=== PATIENT | male | born 1940 | race Caucasian/White ===

== ENCOUNTER 2022-01-13 14:13 | Inpatient (IN) | payer MEDICARE, SELFPAY ==
[2022-01-13] MEDS ORDERED: Naloxone HCl 0.4 mg/ml Vial ONE (14:34)
[2022-01-13] MEDS ORDERED: Morphine 4 MG/ML VIAL ONE ×2 (14:34→15:57)
[2022-01-13 14:41] LABS: #Basophils 0.1 thou/uL (0.0-0.2); #Eosinphils 0.1 thou/uL (0.0-0.7); #Lymphocytes 1.2 thou/uL (1.20-3.40); #Neutrophils 9.4 thou/uL (1.40-6.50); %Basophils 0.5 % (0.0-1.0); %Eosinophils 0.8 % (0.0-10.0); %Monocytes 8.5 % (0.0-10.0); %Neutrophils 80.2 % (42.0-75.0); Hemoglobin 12.4 g/dL (14.0-18.0); Mean Corpuscular HGB CONC 32.1 g/dL (32.0-36.0); Mean Corpuscular Hemoglobin 32.6 pg (27.0-31.0); Mean Platelet Volume 8.1 fL (7.4-10.4); Platelet Count 253 thou/uL (130-400); RBC Distribution Width 11.3 % (11.5-14.5); White Blood Cell (WBC) Count 11.7 thou/uL (4.8-10.8)
[2022-01-13 14:54] LABS: INR-International Normal Ratio 1.1; PTT 27.3 sec (22.9-36.1); Prothrombin Time 13.9 sec (12.0-14.7)
[2022-01-13 15:02] LABS: ALT (SGPT) 14 U/L (8-55); AST (SGOT) 25 U/L (5-34); Alkaline Phosphatase 60 U/L (40-110); Anion Gap 17 mmol/L (10-20); BUN (Urea Nitrogen) 6 mg/dL (8.4-25.7); Bilirubin, Total 0.5 mg/dL (0.2-1.2); CK (CPK) 111 U/L (30-200); Calc. Creatinine Clearance 0 mL/min (70-130); Calcium 9.4 mg/dL (7.8-10.44); Carbon Dioxide 22 mmol/L (23-31); Chloride 100 mmol/L (98-107); Globulin 2.4 g/dL (2.4-3.5); Glucose 133 mg/dL (83-110); Potassium 3.7 mmol/L (3.5-5.1); Protein, Total 6.4 g/dL (5.8-8.1); Sodium 135 mmol/L (136-145)
[2022-01-13] MEDS ORDERED: cefTRIAXone\\ROCEPHIN 2 GM VIAL ONE (15:57)
[2022-01-13 18:43] LABS: Lactic Acid 1.4 mmol/L (0.5-2.2)
[2022-01-13] MEDS ORDERED: Ondansetron PF 4 MG/2 ML Vial IVP PRN ×2 (18:45→19:42)
[2022-01-13] MEDS ORDERED: Ondansetron ODT 4 MG TAB SL PRN (18:45)
[2022-01-13] MEDS ORDERED: Acetaminophen 325 MG TAB PO PRN (18:45)
[2022-01-13] MEDS ORDERED: Dextrose 50% Abboject 50 ML SYRINGE SLOW IVP PRN (19:42)
[2022-01-13] MEDS ORDERED: Morphine 2 MG/ML VIAL SLOW IVP PRN (19:42)
[2022-01-13] MEDS ORDERED: Ondansetron ODT 4 MG TAB PO PRN (19:42)
[2022-01-13] MEDS ORDERED: hydrALAZINE 20 MG/ML VIAL SLOW IVP PRN (19:42)
[2022-01-13] MEDS ORDERED: Dextrose 5% in Water 1,000 ML IV PRN (19:42)
[2022-01-13] MEDS ORDERED: Sodium Chloride 0.9% 1,000 ML IV SCH (19:45)
[2022-01-13] MEDS ORDERED: traMADol HCl 50 MG TAB PO PRN (19:47)
[2022-01-13] MEDS ORDERED: Ibuprofen 800 MG TAB PO PRN (19:47)
[2022-01-13 20:08] LABS: Magnesium 1.7 mg/dL (1.6-2.6); Phosphorus 2.3 mg/dL (2.3-4.7)
[2022-01-13] MEDS: Cyclobenzaprine 10 MG TAB PO PRN (20:20)
[2022-01-13] MEDS: Senokot S 8.6-50 MG TAB PO SCH (20:20)
[2022-01-13] MEDS: Oxazepam 10 MG CAP PO SCH (20:20)
[2022-01-13] MEDS: Famotidine/PF 20 mg/2ml Vial SLOW IVP SCH (20:21)
[2022-01-13] MEDS ORDERED: Magnesium 2 GM/50 ML(in water) 2 GM in Premix Bag 1 BAG IVPB SCH (21:00)
[2022-01-13 22:10] LABS: Bacteria/HPF None Seen HPF (None Seen); Bilirubin Negative (Negative); Blood, Urine Negative (Negative); Clarity Clear (Clear); Glucose, Urine (Dipstick) Normal (Negative); Ketone, Urine Trace mg/dL (Negative); Leukocyte Negative Leu/uL (Negative); Nitrite Negative (Negative); Protein, Urine (Dipstick) Negative (Neg-Trace); RBC/HPF 0-3 HPF (0-3); Squamous Epithelial None Seen HPF (0-3); Urobilinogen Normal mg/dL (Less than 2); WBC/HPF 0-3 HPF (0-3)
[2022-01-13 22:11] LABS: Urine Culture Reflex No No
[2022-01-14] MEDS: traMADol HCl 50 MG TAB PO SCH ×4 (01:53→18:10)
[2022-01-14] MEDS: Acetaminophen 500 MG TAB PO SCH ×4 (01:54→18:11)
[2022-01-14 04:14] LABS: Anion Gap 12 mmol/L (10-20); BUN (Urea Nitrogen) 8 mg/dL (8.4-25.7); Calc. Creatinine Clearance 83 mL/min (70-130); Calcium 7.9 mg/dL (7.8-10.44); Carbon Dioxide 23 mmol/L (23-31); Chloride 105 mmol/L (98-107); Glucose 108 mg/dL (83-110); Magnesium 2.1 mg/dL (1.6-2.6); Potassium 4.3 mmol/L (3.5-5.1); Sodium 136 mmol/L (136-145)
[2022-01-14] MEDS: Oxazepam 10 MG CAP PO SCH ×3 (06:04→21:06)
[2022-01-14 06:24] LABS: #Lymphocytes 0.9 thou/uL (1.20-3.40); #Monocytes 1.4 thou/uL (0.11-0.59); #Neutrophils 8.3 thou/uL (1.40-6.50); %Basophils 0.2 % (0.0-1.0); %Eosinophils 0.1 % (0.0-10.0); %Lymphocytes 8.6 % (21.0-51.0); %Monocytes 13.5 % (0.0-10.0); %Neutrophils 77.7 % (42.0-75.0); Hemoglobin 9.3 g/dL (14.0-18.0); Mean Corpuscular HGB CONC 33.4 g/dL (32.0-36.0); Mean Corpuscular Hemoglobin 33.8 pg (27.0-31.0); Mean Platelet Volume 8.5 fL (7.4-10.4); Platelet Count 157 thou/uL (130-400); RBC Distribution Width 11.1 % (11.5-14.5); Red Blood Cell (RBC) Count 2.75 mill/uL (4.70-6.10); White Blood Cell (WBC) Count 10.7 thou/uL (4.8-10.8)
[2022-01-14] MEDS: Ferrous Sulfate 325 MG TAB PO SCH ×3 (10:27→18:10)
[2022-01-14] MEDS: Thiamine 100 MG TAB PO SCH (10:28)
[2022-01-14] MEDS: Ascorbic Acid 500 mg Chewable Tablet PO SCH ×2 (10:28→21:06)
[2022-01-14] MEDS: Folic Acid 1 MG TAB PO SCH (10:28)
[2022-01-14] MEDS: Famotidine/PF 20 mg/2ml Vial SLOW IVP SCH ×2 (10:28→21:07)
[2022-01-14] MEDS: Multivitamin W/ Minerals 1 TAB PO SCH (10:29)
[2022-01-14] MEDS: Polyethylene Glycol 3350 17 GM Packet PO SCH (10:29)
[2022-01-14] MEDS: Senokot S 8.6-50 MG TAB PO SCH ×2 (10:29→21:06)
[2022-01-15] MEDS: traMADol HCl 50 MG TAB PO SCH ×5 (00:31→23:26)
[2022-01-15] MEDS: Acetaminophen 500 MG TAB PO SCH ×5 (00:31→23:27)
[2022-01-15] MEDS: Oxazepam 10 MG CAP PO SCH ×3 (05:46→21:55)
[2022-01-15 06:39] LABS: #Lymphocytes 0.6 thou/uL (1.20-3.40); #Monocytes 1.4 thou/uL (0.11-0.59); #Neutrophils 10.7 thou/uL (1.40-6.50); %Basophils 0.4 % (0.0-1.0); %Eosinophils 0.4 % (0.0-10.0); %Monocytes 10.6 % (0.0-10.0); %Neutrophils 83.7 % (42.0-75.0); Hemoglobin 9.8 g/dL (14.0-18.0); Mean Corpuscular HGB CONC 32.5 g/dL (32.0-36.0); Mean Corpuscular Hemoglobin 33.4 pg (27.0-31.0); Mean Platelet Volume 8.7 fL (7.4-10.4); Platelet Count 159 thou/uL (130-400); RBC Distribution Width 11.1 % (11.5-14.5); Red Blood Cell (RBC) Count 2.94 mill/uL (4.70-6.10); White Blood Cell (WBC) Count 12.8 thou/uL (4.8-10.8)
[2022-01-15 07:18] LABS: Anion Gap 9 mmol/L (10-20); BUN (Urea Nitrogen) 7 mg/dL (8.4-25.7); Calc. Creatinine Clearance 75 mL/min (70-130); Calcium 8.4 mg/dL (7.8-10.44); Carbon Dioxide 28 mmol/L (23-31); Chloride 99 mmol/L (98-107); Glucose 98 mg/dL (83-110); Phosphorus 2.1 mg/dL (2.3-4.7); Potassium 4.1 mmol/L (3.5-5.1); Sodium 132 mmol/L (136-145)
[2022-01-15] MEDS ORDERED: Vancomycin 1.5 GRAM/300 ML BAG 1.5 GM in Premix Bag 1 BAG IVPB SCH (07:30)
[2022-01-15] MEDS ORDERED: ceFAZolin (BATCH) 2 GM in Premix Bag 1 BAG IVPB SCH ×2 (07:30→16:00)
[2022-01-15] MEDS ORDERED: CEFAZOLIN 2 GM VIAL ONE (07:35)
[2022-01-15] MEDS ORDERED: Sodium Chloride 0.9% 100 ML ONE ×2 (07:36→07:50)
[2022-01-15] MEDS ORDERED: Tranexamic Acid 1,000 MG/10 ML VIAL ONE (07:49)
[2022-01-15] MEDS ORDERED: Morphine 2 MG/ML VIAL ONE (07:50)
[2022-01-15] MEDS ORDERED: Phenylephrine 10 MG/ML VIAL ONE (08:04)
[2022-01-15] MEDS ORDERED: fentaNYL Citrate/PF 100 MCG/2 ML SYRINGE ONE (08:04)
[2022-01-15] MEDS ORDERED: Sodium Chloride 0.9% 1,000 ML IV SCH (08:15)
[2022-01-15] MEDS ORDERED: Lidocaine 1% PF 5 ML VIAL ONE (08:19)
[2022-01-15] MEDS ORDERED: Rocuronium Bromide 10 MG/ML (10ML VIAL) ONE (08:19)
[2022-01-15] MEDS ORDERED: PROPOFOL 200 MG/20 ML VIAL ONE (08:19)
[2022-01-15] MEDS: Famotidine/PF 20 mg/2ml Vial SLOW IVP SCH ×2 (09:00→21:55)
[2022-01-15] MEDS: Ascorbic Acid 500 mg Chewable Tablet PO SCH ×2 (09:00→21:55)
[2022-01-15] MEDS: Thiamine 100 MG TAB PO SCH (09:00)
[2022-01-15] MEDS: Folic Acid 1 MG TAB PO SCH (09:00)
[2022-01-15] MEDS: Polyethylene Glycol 3350 17 GM Packet PO SCH (09:00)
[2022-01-15] MEDS: Senokot S 8.6-50 MG TAB PO SCH ×2 (09:00→21:55)
[2022-01-15] MEDS ORDERED: Sodium Phosphate 30 MMOL in Sodium Chloride 0.9% 250 ML 250 ML IVPB SCH (09:00)
[2022-01-15] MEDS: Multivitamin W/ Minerals 1 TAB PO SCH (09:00)
[2022-01-15] MEDS ORDERED: Promethazine HCl 25 MG/ML VIAL IVPB PRN (09:49)
[2022-01-15] MEDS ORDERED: Promethazine HCl 25 MG/ML VIAL IM PRN (09:49)
[2022-01-15] MEDS ORDERED: Ondansetron HCl/PF 4 MG/2 ML Vial IVP PRN (09:49)
[2022-01-15] MEDS ORDERED: SUGAMMADEX SODIUM 200 MG/2 ML VIAL ONE (11:19)
[2022-01-15] MEDS ORDERED: Fentanyl 100 MCG/2 ML VIAL ONE (11:56)
[2022-01-15] MEDS ORDERED: Cefepime 2 GM in Sodium Chloride 0.9% 100 ML IVPB SCH (16:00)
[2022-01-15] MEDS: CEFAZOLIN 2 GM in Sodium Chloride 0.9% 100 ML IVPB SCH ×2 (17:42→23:25)
[2022-01-15] MEDS: Ferrous Sulfate 325 MG TAB PO SCH (18:38)
[2022-01-15 20:06] LABS: Hemoglobin 10.2 g/dL (14.0-18.0); Mean Corpuscular Hemoglobin 31.4 pg (27.0-31.0); Mean Platelet Volume 8.3 fL (7.4-10.4); Platelet Count 152 thou/uL (130-400); RBC Distribution Width 15.3 % (11.5-14.5); Red Blood Cell (RBC) Count 3.25 mill/uL (4.70-6.10)
[2022-01-15] MEDS: Cyclobenzaprine 10 MG TAB PO PRN (21:55)
[2022-01-15] MEDS: Mirtazapine 15 MG TAB PO SCH (21:55)
[2022-01-15] MEDS: Vancomycin 1.5 GRAM/300 ML BAG IVPB SCH (21:57)
[2022-01-16 06:00] LABS: #Lymphocytes 0.7 thou/uL (1.20-3.40); #Monocytes 1.3 thou/uL (0.11-0.59); #Neutrophils 9.2 thou/uL (1.40-6.50); %Basophils 0.3 % (0.0-1.0); %Eosinophils 0.4 % (0.0-10.0); %Monocytes 11.5 % (0.0-10.0); %Neutrophils 81.7 % (42.0-75.0); Hemoglobin 10.5 g/dL (14.0-18.0); Mean Corpuscular HGB CONC 31.9 g/dL (32.0-36.0); Mean Corpuscular Hemoglobin 31.2 pg (27.0-31.0); Mean Corpuscular Volume 97.7 fL (78.0-98.0); Mean Platelet Volume 8.3 fL (7.4-10.4); Platelet Count 163 thou/uL (130-400); RBC Distribution Width 15.1 % (11.5-14.5); Red Blood Cell (RBC) Count 3.35 mill/uL (4.70-6.10); White Blood Cell (WBC) Count 11.2 thou/uL (4.8-10.8)
[2022-01-16] MEDS: traMADol HCl 50 MG TAB PO SCH ×3 (06:15→18:44)
[2022-01-16] MEDS: Oxazepam 10 MG CAP PO SCH ×3 (06:15→21:13)
[2022-01-16] MEDS: Acetaminophen 500 MG TAB PO SCH ×3 (06:15→18:43)
[2022-01-16 06:17] LABS: Calcium 7.6 mg/dL (7.8-10.44); Chloride 105 mmol/L (98-107); Glucose 65 mg/dL (83-110); Potassium 3.6 mmol/L (3.5-5.1); Sodium 135 mmol/L (136-145)
[2022-01-16 06:28] LABS: BUN (Urea Nitrogen) 7 mg/dL (8.4-25.7); Calc. Creatinine Clearance 84 mL/min (70-130); Carbon Dioxide 21 mmol/L (23-31); Magnesium 1.8 mg/dL (1.6-2.6)
[2022-01-16 06:30] LABS: Anion Gap 13 mmol/L (10-20)
[2022-01-16 06:33] LABS: Phosphorus 1.9 mg/dL (2.3-4.7)
[2022-01-16] MEDS ORDERED: Magnesium 2 GM/50 ML(in water) 2 GM in Premix Bag 1 BAG IVPB SCH (09:00)
[2022-01-16] MEDS ORDERED: Potassium Phosphate 30 MMOL, Magnesium Sulfate 2 GM in Sodium Chloride 0.9% 250 ML IVPB SCH (09:00)
[2022-01-16] MEDS: Thiamine 100 MG TAB PO SCH (09:56)
[2022-01-16] MEDS: Folic Acid 1 MG TAB PO SCH (09:56)
[2022-01-16] MEDS: Senokot S 8.6-50 MG TAB PO SCH ×2 (09:56→21:08)
[2022-01-16] MEDS: Multivitamin W/ Minerals 1 TAB PO SCH (09:57)
[2022-01-16] MEDS: Enoxaparin Sodium 30 MG/0.3 ML SYRINGE SC SCH (09:57)
[2022-01-16] MEDS: Polyethylene Glycol 3350 17 GM Packet PO SCH (09:57)
[2022-01-16] MEDS: Ascorbic Acid 500 mg Chewable Tablet PO SCH ×2 (09:57→21:08)
[2022-01-16] MEDS: Allopurinol 100 MG TAB PO SCH (09:57)
[2022-01-16] MEDS: Ferrous Sulfate 325 MG TAB PO SCH ×3 (09:57→21:08)
[2022-01-16] MEDS: Vancomycin 1.5 GRAM/300 ML BAG IVPB SCH (10:19)
[2022-01-16] MEDS: Mirtazapine 15 MG TAB PO SCH (21:08)
[2022-01-17] MEDS: traMADol HCl 50 MG TAB PO SCH ×2 (00:32→05:29)
[2022-01-17] MEDS: Acetaminophen 500 MG TAB PO SCH ×2 (00:32→05:08)
[2022-01-17] MEDS: Oxazepam 10 MG CAP PO SCH ×3 (05:09→20:59)
[2022-01-17 05:26] LABS: Hemoglobin 9.1 g/dL (14.0-18.0); Mean Corpuscular Hemoglobin 31.4 pg (27.0-31.0); Mean Corpuscular Volume 98.1 fL (78.0-98.0); Platelet Count 191 thou/uL (130-400); RBC Distribution Width 14.6 % (11.5-14.5); Red Blood Cell (RBC) Count 2.91 mill/uL (4.70-6.10); White Blood Cell (WBC) Count 12.9 thou/uL (4.8-10.8)
[2022-01-17 05:35] LABS: Anion Gap 11 mmol/L (10-20); BUN (Urea Nitrogen) 9 mg/dL (8.4-25.7); Calc. Creatinine Clearance 89 mL/min (70-130); Calcium 7.9 mg/dL (7.8-10.44); Carbon Dioxide 25 mmol/L (23-31); Chloride 104 mmol/L (98-107); Glucose 98 mg/dL (83-110); Magnesium 2.1 mg/dL (1.6-2.6); Phosphorus 2.1 mg/dL (2.3-4.7); Sodium 136 mmol/L (136-145)
[2022-01-17 06:01] LABS: Band 7 % (5-11); Lymphocytes 4 % (21-51); MDiff Complete? YES; Monocytes 8 % (0-10); Neutrophil 81 % (42-75)
[2022-01-17] MEDS: Enoxaparin Sodium 30 MG/0.3 ML SYRINGE SC SCH (10:13)
[2022-01-17] MEDS: Polyethylene Glycol 3350 17 GM Packet PO SCH (10:13)
[2022-01-17] MEDS: Ascorbic Acid 500 mg Chewable Tablet PO SCH ×2 (10:14→20:59)
[2022-01-17] MEDS: Folic Acid 1 MG TAB PO SCH (10:14)
[2022-01-17] MEDS: Allopurinol 100 MG TAB PO SCH (10:14)
[2022-01-17] MEDS: Multivitamin W/ Minerals 1 TAB PO SCH (10:14)
[2022-01-17] MEDS: Ferrous Sulfate 325 MG TAB PO SCH ×2 (10:14→21:00)
[2022-01-17] MEDS: Thiamine 100 MG TAB PO SCH (10:14)
[2022-01-17] MEDS: Acetaminophen/Codeine 30-300mg Tablet PO SCH ×3 (10:15→21:01)
[2022-01-17] MEDS: Senokot S 8.6-50 MG TAB PO SCH ×2 (10:15→21:00)
[2022-01-17] MEDS: Acetaminophen 325 MG TAB PO SCH ×2 (12:08→17:33)
[2022-01-17] MEDS ORDERED: Melatonin 3 MG TAB PO PRN (14:54)
[2022-01-17] MEDS ORDERED: Sodium Chloride 0.9% 1,000 ML IV SCH (15:00)
[2022-01-17] MEDS: Mirtazapine 15 MG TAB PO SCH (21:00)
[2022-01-17] MEDS: Cyclobenzaprine 10 MG TAB PO PRN (21:01)
[2022-01-17] MEDS: Sodium Chloride 0.9% 1,000 ML IV SCH (21:02)
[2022-01-18] MEDS: Acetaminophen 325 MG TAB PO SCH ×4 (01:31→18:16)
[2022-01-18] MEDS: Acetaminophen/Codeine 30-300mg Tablet PO SCH ×4 (04:08→20:48)
[2022-01-18] MEDS: Oxazepam 10 MG CAP PO SCH ×3 (05:57→20:47)
[2022-01-18] MEDS: Sodium Chloride 0.9% 1,000 ML IV SCH (05:58)
[2022-01-18 06:11] LABS: Anion Gap 8 mmol/L (10-20); BUN (Urea Nitrogen) 9 mg/dL (8.4-25.7); Calc. Creatinine Clearance 88 mL/min (70-130); Calcium 7.4 mg/dL (7.8-10.44); Carbon Dioxide 26 mmol/L (23-31); Chloride 106 mmol/L (98-107); Glucose 105 mg/dL (83-110); Magnesium 1.9 mg/dL (1.6-2.6); Potassium 3.7 mmol/L (3.5-5.1); Sodium 136 mmol/L (136-145)
[2022-01-18 06:29] LABS: Phosphorus 1.9 mg/dL (2.3-4.7)
[2022-01-18] MEDS ORDERED: Magnesium 2 GM/50 ML(in water) 2 GM in Premix Bag 1 BAG IVPB SCH (08:00)
[2022-01-18] MEDS ORDERED: Potassium Phosphate 30 MMOL, Magnesium Sulfate 2 GM in Sodium Chloride 0.9% 250 ML 250 ML IVPB SCH (08:00)
[2022-01-18] MEDS: Enoxaparin Sodium 40 MG/0.4 ML SYRINGE SC SCH (08:17)
[2022-01-18] MEDS: Senokot S 8.6-50 MG TAB PO SCH (08:17)
[2022-01-18] MEDS: Folic Acid 1 MG TAB PO SCH (08:17)
[2022-01-18] MEDS: Ferrous Sulfate 325 MG TAB PO SCH ×2 (08:17→20:46)
[2022-01-18] MEDS: Ascorbic Acid 500 mg Chewable Tablet PO SCH ×2 (08:17→20:47)
[2022-01-18] MEDS: Multivitamin W/ Minerals 1 TAB PO SCH (08:17)
[2022-01-18] MEDS: Thiamine 100 MG TAB PO SCH (08:17)
[2022-01-18] MEDS: Allopurinol 100 MG TAB PO SCH (08:18)
[2022-01-18] MEDS: Polyethylene Glycol 3350 17 GM Packet PO SCH (08:19)
[2022-01-18] MEDS: Losartan 25 MG TAB PO SCH (11:42)
[2022-01-18] MEDS: Atorvastatin Calcium 20 MG TAB PO SCH (20:46)
[2022-01-18] MEDS: Mirtazapine 15 MG TAB PO SCH (20:47)
[2022-01-19] MEDS: Acetaminophen 325 MG TAB PO SCH ×4 (01:02→17:51)
[2022-01-19] MEDS: Acetaminophen/Codeine 30-300mg Tablet PO SCH ×4 (03:01→20:39)
[2022-01-19] MEDS: Multivitamin W/ Minerals 1 TAB PO SCH (10:09)
[2022-01-19] MEDS: Enoxaparin Sodium 40 MG/0.4 ML SYRINGE SC SCH (10:09)
[2022-01-19] MEDS: Losartan 25 MG TAB PO SCH (10:10)
[2022-01-19] MEDS: Folic Acid 1 MG TAB PO SCH (10:10)
[2022-01-19] MEDS: Thiamine 100 MG TAB PO SCH (10:11)
[2022-01-19] MEDS: Ascorbic Acid 500 mg Chewable Tablet PO SCH ×2 (10:11→20:39)
[2022-01-19] MEDS: PHOS-NAK 1 PKT PACK PO SCH ×2 (10:11→20:40)
[2022-01-19] MEDS: Ferrous Sulfate 325 MG TAB PO SCH ×2 (10:11→20:40)
[2022-01-19] MEDS: Allopurinol 100 MG TAB PO SCH (10:11)
[2022-01-19] MEDS: Oxazepam 10 MG CAP PO SCH ×3 (10:18→20:42)
[2022-01-19 10:56] VITALS: BMI 21.5
[2022-01-19 13:26] LABS: Anion Gap 8 mmol/L (10-20); BUN (Urea Nitrogen) 9 mg/dL (8.4-25.7); Calc. Creatinine Clearance 104 mL/min (70-130); Calcium 7.3 mg/dL (7.8-10.44); Carbon Dioxide 27 mmol/L (23-31); Chloride 98 mmol/L (98-107); Glucose 113 mg/dL (83-110); Magnesium 1.8 mg/dL (1.6-2.6); Potassium 3.8 mmol/L (3.5-5.1); Sodium 129 mmol/L (136-145)
[2022-01-19] MEDS ORDERED: Magnesium Sulfate 3 GM in Sodium Chloride 0.9% 100 ML IVPB SCH (15:45)
[2022-01-19] MEDS ORDERED: Magnesium 2 GM/50 ML(in water) 3 GM in Premix Bag 1 BAG IVPB SCH (15:45)
[2022-01-19] MEDS ORDERED: Calcium Carbonate 500 MG ChewTAB PO PRN (16:34)
[2022-01-19] MEDS ORDERED: Magnesium Citrate 300 ML BOT PO SCH (16:45)
[2022-01-19] MEDS: Atorvastatin Calcium 20 MG TAB PO SCH (20:39)
[2022-01-19] MEDS: Mirtazapine 15 MG TAB PO SCH (20:40)
[2022-01-19] MEDS: Sodium Chloride 1 GM TAB PO SCH (22:02)
[2022-01-20] MEDS: Acetaminophen 325 MG TAB PO SCH ×3 (00:28→12:57)
[2022-01-20] MEDS: Acetaminophen/Codeine 30-300mg Tablet PO SCH ×3 (03:59→16:20)
[2022-01-20] MEDS: Sodium Chloride 1 GM TAB PO SCH ×2 (05:32→12:53)
[2022-01-20] MEDS: Oxazepam 10 MG CAP PO SCH ×2 (05:33→12:53)
[2022-01-20 07:36] LABS: Phosphorus 2.6 mg/dL (2.3-4.7)
[2022-01-20] MEDS: Thiamine 100 MG TAB PO SCH (08:43)
[2022-01-20] MEDS: Enoxaparin Sodium 40 MG/0.4 ML SYRINGE SC SCH (08:43)
[2022-01-20] MEDS: Folic Acid 1 MG TAB PO SCH (08:44)
[2022-01-20] MEDS: Ascorbic Acid 500 mg Chewable Tablet PO SCH (08:44)
[2022-01-20] MEDS: Losartan 25 MG TAB PO SCH (08:44)
[2022-01-20] MEDS: Ferrous Sulfate 325 MG TAB PO SCH (08:44)
[2022-01-20] MEDS: Multivitamin W/ Minerals 1 TAB PO SCH (08:44)
[2022-01-20] MEDS: PHOS-NAK 1 PKT PACK PO SCH (08:45)
[2022-01-20] MEDS: Allopurinol 100 MG TAB PO SCH (08:45)
[2022-01-20] MEDS ORDERED: Amlodipine 5 MG TAB PO SCH (09:00)
[2022-01-20 17:03] VITALS: BP 153/80; TEMP 98.8
== END 2022-01-20 18:30 | DRG 466 ==
LOC: ERS 14:13 → IMCU/EMU 16:07 → SURG A 01-14 14:16
PROVIDERS: ADMIT Surgery; ATTEND Surgery
PROC: 0QS704Z Reposition Left Upper Femur with Internal Fixation Device, Open Approach (ICD-10-PCS; principal; 2022-01-15)
PROC: 0SRS03Z Replacement of Left Hip Joint, Femoral Surface with Ceramic Synthetic Substitute, Open Approach (ICD-10-PCS; 2022-01-15)
PROC: 0SPS0JZ Removal of Synthetic Substitute from Left Hip Joint, Femoral Surface, Open Approach (ICD-10-PCS; 2022-01-15)
PROC: 30233N1 Transfusion of Nonautologous Red Blood Cells into Peripheral Vein, Percutaneous Approach (ICD-10-PCS; 2022-01-15)
DX: S72.002A Fracture of unspecified part of neck of left femur, initial encounter for closed fracture (principal); I46.9 Cardiac arrest, cause unspecified; J96.90 Respiratory failure, unspecified, unspecified whether with hypoxia or hypercapnia; M97.12XA Periprosthetic fracture around internal prosthetic left knee joint, initial encounter; E87.1 Hypo-osmolality and hyponatremia; S72.112A Displaced fracture of greater trochanter of left femur, initial encounter for closed fracture; R59.1 Generalized enlarged lymph nodes; F41.9 Anxiety disorder, unspecified; N28.89 Other specified disorders of kidney and ureter; F10.10 Alcohol abuse, uncomplicated; R41.0 Disorientation, unspecified; R00.0 Tachycardia, unspecified; R58 Hemorrhage, not elsewhere classified; F03.90 Unspecified dementia, unspecified severity, without behavioral disturbance, psychotic disturbance, mood disturbance, and anxiety; W18.30XA Fall on same level, unspecified, initial encounter; E83.39 Other disorders of phosphorus metabolism; Z60.2 Problems related to living alone; Z20.822 Contact with and (suspected) exposure to COVID-19; Z72.89 Other problems related to lifestyle
CPT/HCPCS: 36415; 36430; 70450; 71045; 72125; 72128; 72131; 72170; 80048; 80053; 81001; 82550; 83605; 83735; 84100; 84484; 85025; 85610; 85730; 86850; 86900; 86901; 93005; 93306; 96365; 96375; 96376; C1713; C1776; J0696; J1650; J2270; J2310; J2370; J2704; J3010; J3370; J3475; J3490; J7030; J7050; P9016; S0028